=== PATIENT | female | born 2000 | race Two or more races ===

== ENCOUNTER 2024-10-23 15:05 | Emergency (ER) | payer SELFPAY ==
[~2024-10-23] VITALS: Ht 165.1 cm; Wt 60.0 kg
[2024-10-23 15:09] VITALS: BP 111/66; PULSE 76; RESP 18; TEMP 37.1; O2SAT 99
[2024-10-23] MEDS: ACETAMINOPHEN 325MG TABLET PO ONE (15:41)
[2024-10-23] MEDS: KETOROLAC 30MG/ML VIAL IM ONE (15:41)
== END 2024-10-23 18:06 | disposition left against medical advice (07) ==
LOC: ER 15:05
DX: R07.81 Pleurodynia (principal); R51.9 Headache, unspecified
CPT/HCPCS: 81025; 71045; 72100; 73130; 70450; 96372; 99285; J1885; Z7610